=== PATIENT | male | born 1965 | race African-American/Black ===

== ENCOUNTER 2016-10-28 16:18 | Inpatient (IN) | payer OTHER ==
[~2016-10-28] VITALS: Ht 195.6 cm; Wt 82.6 kg
[2016-10-28] MEDS ORDERED: AMLODIPINE BESY10 MG PO (17:13)
[2016-10-28] MEDS ORDERED: ZESTRIL10 M1 PO (17:13)
[2016-10-28 17:19] LABS: IMMATURE GRANULOCYTES 2.1 % (0.0-1.0); MEAN CELL VOLUME 88.7 fL CALC (80.0-100.0); MEAN CORPUSCULAR HGB 29.4 pG CALC (26.0-32.0); MEAN CORPUSCULAR HGB CONC 33.2 g/L CALC (32.0-36.0); NEUT# 3.89 thou/uL (1.82-7.42); RED BLOOD COUNT 2.21 mill/uL (4.70-6.10); RED CELL DISTRI WIDTH 16.7 % (11.5-15.5)
[2016-10-28 17:29] LABS: HEMATOCRIT 19.6 % (39.0-50.0); HEMOGLOBIN 6.5 g/dl (14.0-18.0)
[2016-10-28] MEDS ORDERED: LISINOPRIL20 M1 PO (17:34)
[2016-10-28] MEDS ORDERED: AMLODIPINE BESYL5 MG PO (17:34)
[2016-10-28 18:33] LABS: ALBUMIN 3.8 g/dL (3.2-5.0); BILIRUBIN, TOTAL 0.2 mg/dL (0.0-1.4); CALCIUM 9.9 mg/dL (8.4-10.2); POTASSIUM 4.5 mmol/l (3.5-5.1)
[2016-10-28 18:41] LABS: TOTAL PROTEIN 12.2 g/dL (6.3-8.2)
[2016-10-28 18:46] LABS: MYOGLOBIN 124 ng/mL (0 - 121)
[2016-10-28 20:15] VITALS: BP 138/69
[2016-10-28 21:23] LABS: URINE BILIRUBIN - DIPSTICK NEGATIVE (NEGATIVE); URINE BLOOD DIPSTICK MODERATE (NEGATIVE); URINE CLARITY CLEAR; URINE COLOR YELLOW; URINE GLUCOSE - DIPSTICK NEGATIVE (NEGATIVE); URINE KETONE NEGATIVE (NEGATIVE); URINE LEUK ESTERASE NEGATIVE (NEGATIVE); URINE NITRITE - DIPSTICK NEGATIVE (Negative); URINE PROTEIN - DIPSTICK 30 mg/dL (NEG-TRACE); URINE SPECIFIC GRAVITY 1.025; URINE UROBILINOGEN - DIPSTICK 0.2 E.U./dL (0.2)
[2016-10-28 21:26] LABS: BARBITURATES NEGATIVE (NEGATIVE); COCAINE NEGATIVE (NEGATIVE); METHADONE NEGATIVE (NEGATIVE); OXCYCODONE NEGATIVE (NEGATIVE); TETRAHYDROCANNABIONOL NEGATIVE (NEGATIVE); TRICYLIC ANTIDEPRESSANTS NEGATIVE (NEGATIVE)
[2016-10-28 21:33] LABS: URINE WBC 0-2 WBC/hpf (0-5)
[2016-10-29] VITALS (14 sets, daily range): BP systolic 95–142; BP diastolic 52–78
[2016-10-29 11:16] LABS: HEMOGLOBIN 8.6 g/dl (14.0-18.0); MEAN CELL VOLUME 87.8 fL CALC (80.0-100.0); MEAN CORPUSCULAR HGB 29.1 pG CALC (26.0-32.0); MEAN CORPUSCULAR HGB CONC 33.1 g/L CALC (32.0-36.0); RED BLOOD COUNT 2.96 mill/uL (4.70-6.10); RED CELL DISTRI WIDTH 16.1 % (11.5-15.5)
[2016-10-29 12:13] LABS: ALBUMIN 3.6 g/dL (3.2-5.0); CALCIUM 9.7 mg/dL (8.4-10.2); MAGNESIUM 1.6 mg/dL (1.6-2.3)
[2016-10-29 12:14] LABS: POTASSIUM 5.5 mmol/l (3.5-5.1)
[2016-10-30 04:26] VITALS: BP 123/70
[2016-10-30 04:59] LABS: HEMATOCRIT 25.5 % (39.0-50.0); HEMOGLOBIN 8.3 g/dl (14.0-18.0); IMMATURE GRANULOCYTES 0.7 % (0.0-1.0); MEAN CELL VOLUME 89.2 fL CALC (80.0-100.0); MEAN CORPUSCULAR HGB CONC 32.5 g/L CALC (32.0-36.0); NEUT# 2.87 thou/uL (1.82-7.42); RED BLOOD COUNT 2.86 mill/uL (4.70-6.10); RED CELL DISTRI WIDTH 16.2 % (11.5-15.5)
[2016-10-30 05:09] LABS: ALBUMIN 3.4 g/dL (3.2-5.0); BILIRUBIN, TOTAL 0.3 mg/dL (0.0-1.4); CALCIUM 9.5 mg/dL (8.4-10.2); CREATININE 4.1 mg/dL (0.7-1.3); POTASSIUM 4.8 mmol/l (3.5-5.1); TOTAL PROTEIN 10.7 g/dL (6.3-8.2)
[2016-10-30] MEDS ORDERED: PANTOPRAZOLE SO40 M1 PO (08:59)
[2016-10-30] MEDS ORDERED: SODIUM BICARBI650 MG PO (09:05)
[2016-10-30] MEDS ORDERED: FERROUS SULF325 M2 PO (09:24)
[2016-10-30 09:35] VITALS: BP 133/69
[2016-10-30 11:20] VITALS: BP 128/74
== END 2016-10-30 12:08 | DRG 812 ==
LOC: EDPENDDISTM → EDPENDDISDT → ENPENDDIS → ED 16:18 → ED-I 17:35 → ED 17:55 → MS2 17:56
PROVIDERS: Emergency Medicine; ADMIT Internal Medicine; ATTEND Internal Medicine
PROC: 30233N1 Transfusion of Nonautologous Red Blood Cells into Peripheral Vein, Percutaneous Approach (ICD-10-PCS; principal; 2016-10-29)
PROC: 30233N1 Transfusion of Nonautologous Red Blood Cells into Peripheral Vein, Percutaneous Approach (ICD-10-PCS; 2016-10-29)
DX: D62 Acute posthemorrhagic anemia (principal); E87.2 Acidosis; N17.9 Acute kidney failure, unspecified; N18.4 Chronic kidney disease, stage 4 (severe); Q61.3 Polycystic kidney, unspecified; K92.1 Melena; I12.9 Hypertensive chronic kidney disease with stage 1 through stage 4 chronic kidney disease, or unspecified chronic kidney disease; D63.1 Anemia in chronic kidney disease
CPT/HCPCS: G0328; G0378; J1756; P9016; S0164

== ENCOUNTER 2017-02-25 21:16 | Emergency (ER) | payer OTHER ==
[~2017-02-25] VITALS: Ht 195.6 cm; Wt 100.0 kg
[~2017-02-25 21:16] MED LIST: AMLODIPINE BESY10 MG PO; AMLODIPINE BESYL5 MG PO; FERROUS SULF325 M2 PO; LISINOPRIL20 M1 PO; PANTOPRAZOLE SO40 M1 PO; SODIUM BICARBI650 MG PO; ZESTRIL10 M1 PO
[2017-02-25] MEDS ORDERED: ASPIRIN CHEWABL81 MG PO (21:38)
[2017-02-25] MEDS ORDERED: LOSARTAN POT50 MG PO (21:38)
[2017-02-25] MEDS ORDERED: LOVASTATIN10 MG PO (21:39)
[2017-02-25] MEDS ORDERED: ASPIRIN 8181 MG PO (21:44)
[2017-02-25 22:12] LABS: IMMATURE GRANULOCYTES 1.8 % (0.0-1.0); MEAN CELL VOLUME 87.4 fL CALC (80.0-100.0); MEAN CORPUSCULAR HGB 29.5 pG CALC (26.0-32.0); MEAN CORPUSCULAR HGB CONC 33.7 g/L CALC (32.0-36.0); NEUT# 5.56 thou/uL (1.82-7.42); RED BLOOD COUNT 2.07 mill/uL (4.70-6.10); RED CELL DISTRI WIDTH 17.1 % (11.5-15.5)
[2017-02-25 22:32] LABS: HEMATOCRIT 18.1 % (39.0-50.0); HEMOGLOBIN 6.1 g/dl (14.0-18.0)
[2017-02-25 22:34] LABS: ALBUMIN 3.5 g/dL (3.2-5.0); BILIRUBIN, TOTAL 0.4 mg/dL (0.0-1.4); CALCIUM 9.2 mg/dL (8.4-10.2); TOTAL PROTEIN 10.4 g/dL (6.3-8.2)
[2017-02-25 22:39] LABS: INFLUENZA A NONE DETECTED (NONE DETECT); INFLUENZA B NONE DETECTED (NONE DETECT)
[2017-02-25 22:48] LABS: CREATININE 6.6 mg/dL (0.7-1.3)
[2017-02-26 01:30] VITALS: BP 119/57
== END 2017-02-26 01:56 | DRG 194 ==
LOC: ED 21:16 → ED-I 22:50 → ED 02-26 01:56
PROVIDERS: Emergency Medicine
DX: J18.9 Pneumonia, unspecified organism (principal); N18.4 Chronic kidney disease, stage 4 (severe); E87.2 Acidosis; I12.9 Hypertensive chronic kidney disease with stage 1 through stage 4 chronic kidney disease, or unspecified chronic kidney disease; D50.0 Iron deficiency anemia secondary to blood loss (chronic); R50.9 Fever, unspecified; R53.1 Weakness; R05 Cough; R19.7 Diarrhea, unspecified